=== PATIENT | male | born 1960 | race Native Hawaiian/Other Pacific Islander ===

== ENCOUNTER 2021-01-19 18:29 | Emergency (ER) | payer OTHER ==
[~2021-01-19] VITALS: Ht 188 cm; Wt 83.9 kg
[2021-01-19 19:43] LABS: PLATELET COUNT 213 K/uL (142-355)
[2021-01-19 19:48] LABS: POTASSIUM 4.4 mmol/L (3.6-5.2); SODIUM 143 mmol/L (136-145)
[2021-01-19] MEDS ORDERED: TAMS0.4C PO (23:17)
[2021-01-19 23:40] VITALS: BP 134/80; TEMP 97.5
[2021-01-20] MEDS ORDERED: DIPH50IN IV (00:02)
[2021-01-20] MEDS ORDERED: DIPH50IN (00:02)
== END 2021-01-19 23:45 | disposition home or self-care (01) ==
LOC: ED 18:29
PROVIDERS: Family Medicine
DX: N20.0 Calculus of kidney (principal); R10.84 Generalized abdominal pain; Z87.442 Personal history of urinary calculi
CPT/HCPCS: 36415; 80053; 81000; 82150; 82550; 83690; 84484; 85027; 96360; 96375; 96376; 99284; J1200; J1885; J2270; J2405